=== PATIENT | female | born 1970 | race African-American/Black ===

== ENCOUNTER 2017-07-23 09:44 | Emergency (ER) | payer MEDICAID ==
[~2017-07-23] VITALS: Ht 170.2 cm; Wt 85.0 kg
[2017-07-23] MEDS ORDERED: SODIUM CHLORIDE 0.9% 1,000 ML IV ONE (10:07)
[2017-07-23 10:51] LABS: BASOPHILS % 0.7 % (0.0-2.0); EOSINOPHILS % 0.3 % (0.0-5.0); HEMATOCRIT. 45.4 % (36.0-48.0); HEMOGLOBIN. 14.8 g/dL (12.0-16.0); LYMPHOCYTES % 16.7 % (20.0-50.0); MEAN CORPUSCULAR VOLUME 73.8 fL (81.0-99.0); MEAN PLATELET VOLUME 8.8 fl (7.4-10.4); MONOCYTES % 9.6 % (2.0-8.0); NEUTROPHILS % 72.7 % (40.0-76.0); PLATELET 222 x1000/uL (130-400); RED BLOOD CELL COUNT 6.16 mill/uL (4.2-5.4); RED CELL DISTRIBUTION WIDTH 15.3 % (11.6-14.6)
[2017-07-23 10:59] LABS: CHLORIDE 105 mEq/L (98-107)
[2017-07-23 11:00] LABS: INR 1.1; PARTIAL THROMBOPLASTIN TIME 30.9 sec (23.4-31.0); PROTHROMBIN TIME 11.3 sec (9.4-11.6)
[2017-07-23 11:04] LABS: ETHANOL BLOOD < 10 mg/dL
[2017-07-23 11:35] LABS: *AMPHETAMINES SCREEN URINE NEGATIVE (NEGATIVE); *BARBITURATES SCREEN URINE NEGATIVE (NEGATIVE); *BENZODIAZEPINES SCREEN URINE NEGATIVE (NEGATIVE); *COCAINE SCREEN URINE NEGATIVE (NEGATIVE); CANNABINOID URINE SCREEN NEGATIVE (NEGATIVE); METHADONE URINE SCREEN NEGATIVE (NEGATIVE); OPIATES URINE SCREEN NEGATIVE (NEGATIVE); PHENCYCLIDINE URINE SCREEN NEGATIVE (NEGATIVE)
[2017-07-23 11:38] LABS: HCG SCREEN NEGATIVE
[2017-07-23] MEDS ORDERED: MIDAZOLAM HCL 2 MG/2 ML VIAL IV ONE (13:30)
[2017-07-23 13:47] LABS: CHLORIDE 110 mEq/L (98-107)
[2017-07-23] MEDS ORDERED: POTASSIUM CHLORIDE 20MEQ TABLET SR PO ONE (14:30)
[2017-07-23] MEDS ORDERED: OLANZAPINE 10 MG/VIAL IM ONE (16:00)
[2017-07-23] MEDS ORDERED: OLANZAPINE 5MG TABLET ODT PO ONE (17:45)
[2017-07-23] MEDS ORDERED: OLANZAPINE 10 MG/VIAL IM NR (22:00)
[2017-07-24] MEDS ORDERED: ZIPRASIDONE MESYLATE 20MG/VIAL IM ONE (06:45)
[2017-07-24] MEDS ORDERED: MIDAZOLAM HCL 2 MG/2 ML VIAL IM ONE (06:45)
[2017-07-24] MEDS: OLANZAPINE 5MG TABLET PO SCH (21:18)
[2017-07-24] MEDS ORDERED: ACETAMINOPHEN 325MG TABLET PO ONE (22:15)
[2017-07-25] MEDS ORDERED: ACETAMINOPHEN 325MG TABLET PO ONE (17:00)
[2017-07-25] MEDS: OLANZAPINE 5MG TABLET PO SCH (21:05)
[2017-07-26 12:07] VITALS: BP 131/88
== END 2017-07-26 12:07 | disposition home or self-care (01) ==
LOC: ER 09:59
DX: T43.292A Poisoning by other antidepressants, intentional self-harm, initial encounter (principal); I49.8 Other specified cardiac arrhythmias; F31.9 Bipolar disorder, unspecified; E87.6 Hypokalemia; Z88.0 Allergy status to penicillin; Z88.5 Allergy status to narcotic agent; Y92.89 Other specified places as the place of occurrence of the external cause
CPT/HCPCS: 36415; 80053; 80305; 80307; 80329; 83735; 84703; 85025; 85610; 85730; 93005; 96361; 96372; 96374; 99285; G0482; J2250; J3486; J3490; J7030